=== PATIENT | female | born 1980 | race Two or more races ===

== ENCOUNTER 2016-11-20 12:29 | Emergency (ER) | payer OTHER ==
[~2016-11-20] VITALS: Ht 160 cm; Wt 60.0 kg
[~2016-11-20 12:29] MED LIST: IRON18TA PO; PREN1TAB49 PO
[2016-11-20 12:33] VITALS: Ht 160 cm; Wt 60.0 kg
--- NOTE | 2016-11-20 14:35 | RADRPT ---
PROCEDURE: X-ray, Elbow. CLINICAL INDICATION: Pain status post fall. TECHNIQUE: Left elbow x-rays, 3 views. COMPARISON: Left forearm x-rays 11/20/2016. FINDINGS: Bony mineralization is normal. There is a nondisplaced obliquely oriented intra-articular fracture of the lateral aspect of the radial head extending through the neck. There is also suggestion of an impacted nondisplaced radial neck fracture. The elbow joint is intact. A joint effusion is present . IMPRESSION: Nondisplaced intra-articular radial head and impacted nondisplaced radial neck fractures. RPTAT: HLST .Carolin Melvin MD, MD Date Time Electronically viewed and signed by .Carolin Melvin MD, MD on 11/20/2016 14:35 .T/
--- NOTE | 2016-11-20 14:37 | RADRPT ---
PROCEDURE: XR Forearm. CLINICAL INDICATION: Pain status post fall. TECHNIQUE: Left forearm x-rays, two views. COMPARISON: Left elbow x-rays 11/20/2016. FINDINGS: Bony mineralization is normal. Nondisplaced radial head and impacted radial neck fractures are agai n identified. The remainder of the forearm is unremarkable. The wrist and elbow joints are intact. Mild soft tissue edema of the radial aspect of the distal forearm is observed. IMPRESSION: Nondisplaced radial head and impacted radial neck fractures. RPTAT: HLST .Carolin Melvin MD, MD Date Time Electronically viewed and signed by .Carolin Melvin MD, MD on 11/20/2016 14:37 .T/
--- NOTE | 2016-11-20 14:45 | ERD ---
ER Documentation Chief Complaint Date/Time DATE: 11/20/16 TIME: 14:43 Chief Complaint pt c/o left arm/shoulder and knee pain s/p fall few days ago -ELISE OLIVARES This 36-year-old female presents to the emergency room for evaluation of left- sided elbow pain. This patient states that approximately 4 days ago she fell down one step and fell on her left arm. She denies hitting her head or loss of consciousness. She is having a stabbing pain in the elbow which she describes as achy pain worse with movement. The patient denies any numbness or tingling in the hand or distal extremity. She was brought to the ER today for further evaluation. ROS All systems reviewed and are negative except as per history of present illness. Medications Home Meds Reported Medications Iron (Iron) 18 Mg Tablet, 18 MG PO 05/26/12 Vits W-Ca,Fe,Fa(<1MG) () 1 Tab Tablet, 1 TAB PO 05/26/12 Allergies Allergies: Coded Allergies: Nitrofurantoin (Verified Allergy, 05/26/12) RASH Nitrofurantoin Macrocrystal (Verified Allergy, 05/26/12) RASH PMhx/Soc Medical and Surgical Hx: pt denies Medical Hx, pt denies Surgical Hx Hx Alcohol Use: No Hx Substance Use: No Smoking Status: Never smoker Physical Exam Vitals Vital Signs Date Time Temp Pulse Resp B/P Pulse Ox O2 Delivery O2 Flow Rate FiO2 11/20/16 12:33 98.3 76 16 126/70 99 Physical Exam INITIAL VITAL SIGNS: Reviewed by me GENERAL: The patient is well developed and appropriate for usual state of health in no apparent distress HEENT: Pupils equal, round, and reactive to light. EOMI. There is no scleral icterus. NECK: C-spine is soft and supple, there is no meningismus. There is no cervical lymphadenopathy. LUNGS: Clear to auscultation bilaterally. There are no rales, wheezes or rhonchi. HEART: Regular rate and rhythm, no murmurs, clicks, rubs or gallops. ABDOMEN: Soft, non-tender, non-distended. There are bowel sounds in all four quadrants. No rebound or guarding. EXTREMITIES: There is no peripheral cyanosis or edema. No focal swelling or erythema. NEUROLOGICAL: The patient moves all four extremities with 5/5 strength. Cranial nerves II - XII are intact. Normal gait. Alert and oriented SKIN: There is no apparent rash or petechiae. HEME/LYMPHATIC: There is no evidence of excessive bruising or lymphedema. PSYCHIATRIC: The patient does not appear anxious or depressed. Procedures/MDM X-ray Forearm 2V Interpreted by me: Bones: No fracture Joints: No dislocation Foreign body: None X-ray Elbow 2V Interpreted by me: Fat Pads: Normal Bones:Nondisplaced intra-articular radial head and impacted nondisplaced radial neck fractures. Joints: No dislocation Foreign body: None A left upper extremity posterior splint splint was applied by the tech under my direct supervision. After splint application, the patient was appreciated to have a normal distal neurovascular examination. This 36-year-old female presents to the emergency room for evaluation of elbow pain after ground-level fall. This patient was found to have a nondisplaced intra-articular radial head fracture and a nondisplaced radial neck fracture. This patient has no signs of compartment syndrome, pulses are intact distally, she was placed in a posterior elbow splint. She will be discharged home with a prescription for Roselle for breakthrough pain, and referral for outpatient orthopedics. Departure Diagnosis: Primary Impression: Radial head fracture, closed Additional Impression: Fracture of radial neck, left, closed Condition: Stable JENNA SCHULER DO Nov 20, 2016 14:45
[2016-11-20] MEDS ORDERED: HYDR-906 PO (14:46)
== END 2016-11-20 15:18 | disposition home or self-care (01) ==
LOC: FTE 12:29
DX: S52.122A Displaced fracture of head of left radius, initial encounter for closed fracture (principal); S52.132A Displaced fracture of neck of left radius, initial encounter for closed fracture; W17.89XA Other fall from one level to another, initial encounter; Y92.9 Unspecified place or not applicable
CPT/HCPCS: 29105; 73080; 73090; Z7502